=== PATIENT | female | born 1965 | race Caucasian/White ===

== ENCOUNTER 2019-08-19 14:02 | Emergency (ER) | payer SELFPAY ==
[2019-08-19] MEDS ORDERED: Acetaminophen TAB* 325 MG PO ONE (14:22)
--- NOTE | 2019-08-19 14:41 | ED ---
Upper Extremity Pain - HPI Summary HPI Summary: Patient is a 54-year-old female who presents to emergency department for an isolated left shoulder injury. Patient was cross country skiing when she fell and landed onto her left shoulder. Denies head injury or loss of consciousness. Denies numbness, tingling, weakness, neck pain, chest pain or shortness of breath. No significant past medical history. Is not anticoagulated. Symptoms are mild in severity. Moving shoulder makes symptoms worse. Rest makes symptoms better. - History of Current Complaint Chief Complaint: EDShoulderClavicleInj Stated Complaint: LEFT SHOULDER INJURY PER PT Time Seen by Provider: 08/19/19 14:07 Hx Obtained From: Patient - Allergies/Home Medications Allergies/Adverse Reactions: Allergies Allergy/AdvReac Type Severity Reaction Status Date / Time No Known Allergies Allergy Verified 08/19/19 14:03 Home Medications: Home Medications Naproxen Sodium [Aleve] 220 mg PO DAILY 08/19/19 [History Confirmed 08/19/19] PMH/Surg Hx/FS Hx/Imm Hx Previously Healthy: Yes Infectious Disease History: No Infectious Disease History: Denies: Traveled Outside the [place] in Last 30 Days - Family History Known Family History: Positive: Non-Contributory - Social History Occupation: Employed Full-time Lives: With Family Alcohol Use: Daily Substance Use Type: Reports: None Smoking Status (MU): Never Smoked Tobacco Review of Systems Positive: Other - left shoulder pain Skin: Negative Neurological: Negative Negative: Weakness, Paresthesia, Numbness All Other Systems Reviewed And Are Negative: Yes Physical Exam Triage Information Reviewed: Yes Vital Signs On Initial Exam: Initial Vitals Temp Pulse Resp BP Pulse Ox 97.6 F 54 16 155/81 100 08/19/19 14:03 08/19/19 14:03 08/19/19 14:03 08/19/19 14:03 08/19/19 14:03 Vital Signs Reviewed: Yes Appearance: Positive: Well-Appearing - Patient sitting on bed, guarding left shoulder. Skin: Positive: Warm, Dry Head/Face: Positive: Normal Head/Face Inspection Eyes: Positive: Normal, EOMI Neck: Positive: Supple, Nontender Musculoskeletal: Positive: Other - Good palpable left radial pulse. Normal strength and sensation. Can touch her contralateral shoulder. Pain on palpation over proximal left humerus. Able to abduct arm. No distal injuries. Neurological: Positive: Normal, CN Intact II-III Psychiatric: Positive: Affect/Mood Appropriate Procedures - Sedation Patient Received Moderate/Deep Sedation with Procedure: No Diagnostics - Vital Signs Vital Signs Temp Pulse Resp BP Pulse Ox 08/19/19 14:03 97.6 F 54 16 155/81 100 - Laboratory Lab Statement: Any lab studies that have been ordered have been reviewed, and results considered in the medical decision making process. Course/Dx - Course Course Of Treatment: Patient with isolated shoulder injury. Tylenol given for pain and ice pack applied. X-rays negative for acute fracture dislocation per radiology. Results discussed with patient. We'll give sling and advised patient to only wear intermittently for comfort. Advised to do gentle stretching and range of motion with shoulder. Instructed to follow-up with PCP orthopedics if pain persists greater than 2 weeks for further evaluation. Tylenol or Motrin for pain as directed. Patient understands and agrees with plan. - Diagnoses Differential Diagnosis/HQI/PQRI: Positive: Contusion, Fracture (Closed), Strain , Sprain Provider Diagnoses: Shoulder injury Discharge ED - Sign-Out/Discharge Documenting (check all that apply): Patient Departure - Discharge Plan Condition: Good Disposition: HOME Patient Education Materials: Shoulder Sprain (ED) Referrals: Jeremiah Begum MD [Primary Care Provider] - Jennifer An MD [Medical Doctor] - Additional Instructions: Follow up with PCP or orthopedic clinic if pain persist for further evaluation Ice and rest Tylenol or Motrin for pain as directed Wear sling intermittently for comfort Gentle shoulder range or motion and stretching Return to ER if symptoms change worsen - Billing Disposition and Condition Condition: GOOD Disposition: Home - Attestation Statements Provider Attestation: I was available for consult. This patient was seen by the [facility]. The patient was not presented to, seen by, or examined by me. Umair Whitten MD
[2019-08-19 15:02] VITALS: BP 122/68
== END 2019-08-19 15:00 | disposition home or self-care (01) ==
LOC: ED 14:02
DX: S49.92XA Unspecified injury of left shoulder and upper arm, initial encounter (principal); W19.XXXA Unspecified fall, initial encounter; Y93.24 Activity, cross country skiing; Y92.9 Unspecified place or not applicable
CPT/HCPCS: 99282; A9270-GY